=== PATIENT | female | born 1960 | race Two or more races ===

== ENCOUNTER 2022-07-19 08:31 | Emergency (ER) | payer OTHER ==
[2022-07-19 09:40] VITALS: BMI 27.8
[2022-07-19] MEDS ORDERED: ACETAMINOPHEN 500 MG TABLET (FP) PO ONE (10:30)
[2022-07-19] MEDS ORDERED: ACETAMINOPHEN 500 MG TABLET (FP) ONE (11:05)
[2022-07-19] MEDS ORDERED: SODIUM CHLORIDE 1,000 ML IV STA (12:38)
[2022-07-19 13:28] VITALS: BP 110/68; PULSE 72; RESP 19; TEMP 98.8
[2022-07-19 13:43] LABS: BASO % 0.8 % (0-2.0); EOS % 0.1 % (0-4.5); HEMATOCRIT 41.7 % (32.4-45.2); HEMOGLOBIN 13.9 GM/dL (10.7-15.3); LYMPH % 11.3 % (8-40); MCH 27.4 pg (25.7-33.7); MCHC 33.2 g/dl (32.0-36.0); MEAN CELL VOLUME 82.5 fl (80-96); MEAN PLT VOLUME 7.7 fl (7.5-11.1); NEUT % 82.8 % (42.8-82.8); PLATELET COUNT 230 10^3/uL (134-434); RBC 5.06 M/mm3 (3.60-5.2); RDW 14.3 % (11.6-15.6); WHITE BLOOD COUNT 10.4 K/mm3 (4.0-10.0)
[2022-07-19 13:56] LABS: ALBUMIN 3.9 g/dl (3.4-5.0); BLOOD UREA NITROGEN 9.3 mg/dL (7-18); CALCIUM 9.2 mg/dL (8.5-10.1)
[2022-07-19 13:57] LABS: MAGNESIUM 2.2 mg/dL (1.8-2.4)
[2022-07-19 13:58] LABS: CREATININE 0.6 mg/dL (0.55-1.3)
[2022-07-19 14:01] LABS: BILIRUBIN,TOTAL 0.7 mg/dL (0.2-1); TOT PROT 6.9 g/dl (6.4-8.2)
== END 2022-07-19 14:38 | disposition home or self-care (01) ==
LOC: JER 08:31
DX: G44.89 Other headache syndrome (principal)
CPT/HCPCS: 0241U-QW; 36415; 71046-TC-FY; 80053; 83735; 84443; 84484; 85025; 93005; 93010; 99285-25

== ENCOUNTER 2023-06-27 11:28 | Day surgery (SDC) | payer OTHER ==
[2023-06-25 11:12] VITALS: BMI 30.4
[2023-06-27 13:30] VITALS: TEMP 98
[2023-06-27 13:31] VITALS: RESP 18
[2023-06-27 13:32] VITALS: BP 122/72; PULSE 65
== END 2023-06-27 13:52 | disposition home or self-care (01) ==
LOC: FASU-ENDO 11:28
PROVIDERS: ATTEND Internal Medicine Gastroenterology
PROC: 0DB68ZX Excision of Stomach, Via Natural or Artificial Opening Endoscopic, Diagnostic (ICD-10-PCS; 2023-06-27)
PROC: 0DB48ZX Excision of Esophagogastric Junction, Via Natural or Artificial Opening Endoscopic, Diagnostic (ICD-10-PCS; 2023-06-27)
PROC: 0DB98ZX Excision of Duodenum, Via Natural or Artificial Opening Endoscopic, Diagnostic (ICD-10-PCS; principal; 2023-06-27 12:56)
DX: K20.90 Esophagitis, unspecified without bleeding (principal)
CPT/HCPCS: 82962; 88305-TC

== ENCOUNTER 2023-08-22 11:59 | Day surgery (SDC) | payer OTHER ==
[2023-08-20 14:19] VITALS: BMI 30.4
[2023-08-22 13:34] VITALS: RESP 18; TEMP 97
[2023-08-22 13:36] VITALS: BP 116/62; PULSE 63
== END 2023-08-22 13:50 | disposition home or self-care (01) ==
LOC: FASU-ENDO 11:59
PROVIDERS: ATTEND Internal Medicine Gastroenterology
PROC: 0DJD8ZZ Inspection of Lower Intestinal Tract, Via Natural or Artificial Opening Endoscopic (ICD-10-PCS; principal; 2023-08-22 12:53)
DX: Z12.11 Encounter for screening for malignant neoplasm of colon (principal); K64.1 Second degree hemorrhoids